=== PATIENT | female | born 1980 | race Asian ===

== ENCOUNTER 2021-02-09 19:44 | Emergency (ER) | payer OTHER ==
[2021-02-09 20:05] VITALS: BP 125/89
--- NOTE | 2021-02-09 20:20 | ED Physician Documentation ---
History of Present Illness - Stated complaint Stated Complaint: ESCOBAR,CHEST TIGHTNESS,COUGH,SORE THROAT - Chief complaint Chief Complaint: Heent - Additonal information Additional information: 40-year-old female presents the emergency department for evaluation of headache sore throat body aches myalgias and low-grade temperature elevation 99.2. Began today. 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 Patient denies abdominal pain, nausea vomiting, chest pain or shortness of breath. No dysuria urgency or frequency. She is otherwise healthy. Review of Systems Constitutional: reports: Fever, Chills, Myalgias Eyes: reports: Reviewed and negative Ears: reports: Reviewed and negative Nose: reports: Reviewed and negative Throat: reports: Reviewed and negative Cardiac: denies: Chest pain / pressure, Palpitations, Pedal edema, Calf pain Respiratory: denies: Dyspnea, Cough GI: denies: Abdominal Pain, Abdominal Swelling, Nausea, Vomiting : reports: Reviewed and negative Skin: reports: Reviewed and negative PD PAST MEDICAL HISTORY - Allergies Allergies/Adverse Reactions: Allergies Allergy/AdvReac Type Severity Reaction Status Date / Time No Known Drug Allergies Allergy Verified 02/09/21 20:05 PD ED PE EXPANDED - General General: Alert. No: No acute distress - HEENT HEENT: PERRL, EOMI, Nasal congestion, Moist mucous membranes, Pharyngeal erythema. No: Right frontal sinus TTP, Left frontal sinus TTP, Right maxillary sinus TTP, Left maxillary sinus TTP, Swollen tonsils, Tonsillar exudate, Soft palate petecchiae - Neck Neck: Supple w/out meningeal sx. No: Adenopathy - Cardiac Cardiac: Regular Rate, Regular Rhythm, Radial strong equal, Cap refill < 2 sec. No: Murmur Present - Respiratory Respiratory: Clear to ausultation regi. No: Distress, Labored - Abdomen Abdomen: Normal Bowel sounds. No: Tender to palpation - Derm Derm: Normal color, Warm and dry - Extremities Extremities: Normal. No: Deformity, Tenderness - Neuro Neuro: Alert and Oriented X 3, CNII-XII intact Results - Vitals Vitals: Vital Signs - 24 hr 02/09/21 20:02 Temperature 36.9 C Heart Rate 75 Respiratory 16 Rate Blood Pressure 125/89 H O2 Saturation 100 Oxygen O2 Source Room air - EKG (time done) 1956 Rate: Rate (enter#) (78) Rhythm: NSR [place]: Normal Intervals: Normal [place] QRS: LVH Compare to prior EKG: Old EKG unavailable Computer interpretation: Agree with computer PD MEDICAL DECISION MAKING - ED course Complexity details: reviewed results, re-evaluated patient, considered differential, d/w patient ED course: This is a well-appearing 40-year-old female who presents the emergency department for evaluation of cute onset headache, low-grade temperature elevation congestion body aches and chills. 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 Covid screening is pending. Patient is advised to remain in quarantine until the test results are known. Reassuringly her cardiopulmonary exam is unremarkable. An EKG screening completed in triage did not show worrisome findings. Departure - Departure Disposition: 01 Home, Self Care Clinical Impression: Encounter for screening for COVID-19, Generalized body aches Headache Qualifiers: Headache type: other headache syndrome Qualified Code(s): G44.89 - Other headache syndrome Condition: Stable Comments: You have a Covid test pending. You need to self quarantine until the result is done and negative. Do not leave your house. Do not get near anybody. The results should be done in 48 to 72 hours. We will call with a positive result, the fastest way to get a negative result for confirmation though is to go to the hospital website at [email or web address], click on the my [facility] tab and sign up for the patient portal. If any friends or family get sick and would like to have a Covid test done, but do not have signs or symptoms that would necessitate being hospitalized, we encourage testing through our coronavirus swabbing station, call [phone] to schedule an appointment. In general I recommend that you get plenty of rest and drink lots of fluids. It is okay to take Tylenol or ibuprofen [id number] for body aches. Return to the emergency department only for suddenly severe chest pain, or if you cannot breathe adequately.
== END 2021-02-09 20:45 | disposition home or self-care (01) ==
LOC: ED 19:44
DX: G44.89 Other headache syndrome (principal); R52 Pain, unspecified; M79.10 Myalgia, unspecified site; R09.81 Nasal congestion; Z20.822 Contact with and (suspected) exposure to COVID-19
CPT/HCPCS: 93005; 99282; 99284